=== PATIENT | male | born 1945 | race Caucasian/White ===

== ENCOUNTER 2022-06-26 11:17 | Emergency (ER) | payer MEDICARE ==
[~2022-06-26] VITALS: Ht 177.8 cm; Wt 94.3 kg
[2022-06-26 12:09] LABS: BASOPHILS % (AUTO) 0.7 % (0.0-5.0); EOSINOPHILS % (AUTO) 2.4 % (0.0-8.0); HEMATOCRIT 46.7 % (42-54); LYMPHOCYTES % (AUTO) 14.1 % (21.0-51.0); MEAN CORPUSCULAR HEMOGLOBIN 29.4 pg (27.0-33.0); MEAN CORPUSCULAR HGB CONC 34.5 g/dL (32.0-36.0); MEAN CORPUSCULAR VOLUME 85.4 fL (79-99); MONOCYTES % (AUTO) 12.6 % (3.0-13.0); NEUTROPHILS % (AUTO) 69.7 % (40.0-77.0); PLATELET COUNT (AUTO) 152 K/uL (130-400); RED BLOOD CELL COUNT(AUTO) 5.47 MIL/uL (4.50-6.20); RED CELL DISTRIBUTION WIDTH 13.8 % (11.0-15.5); WHITE BLOOD COUNT (AUTO) 8.3 K/uL (4.8-10.8)
[2022-06-26 12:39] LABS: ALBUMIN 4.1 g/dL (3.5-5.0); CREATININE 1.4 mg/dL (0.5-1.5); POTASSIUM 3.5 mmol/L (3.5-5.1)
[2022-06-26 13:56] VITALS: BP 128/90
[2022-06-26] MEDS ORDERED: IPRATROPIUM/ALBUTEROL SULFATE 3 ML SOLUTION IH STA (14:18)
[2022-06-26] MEDS ORDERED: IPRATROPIUM 0.5 MG/2.5 ML INH IH ONE (14:21)
[2022-06-26] MEDS ORDERED: ALBUTEROL 0.042% 1.25MG/3ML IH ONE (14:21)
[2022-06-26] MEDS ORDERED: SOLU-MEDROL 125MG VIAL IVP ONE (15:00)
[2022-06-26] MEDS ORDERED: FLUT16H NASAL (15:25)
[2022-06-26] MEDS ORDERED: BENZ-39 PO (15:25)
[2022-06-26] MEDS ORDERED: GUAIFENESIN-CODEINE 5 ML SYRUP PO STA (15:26)
== END 2022-06-26 15:41 | disposition home or self-care (01) ==
LOC: EDH 11:17
DX: J32.9 Chronic sinusitis, unspecified (principal); J06.9 Acute upper respiratory infection, unspecified; I10 Essential (primary) hypertension; Z88.1 Allergy status to other antibiotic agents; Z20.822 Contact with and (suspected) exposure to COVID-19
CPT/HCPCS: 99285; 96374; 71045; 87635; 84484; 80053; 83880; 85025; 87040 ×2; 87804 ×2; 83605; 36415; 93005; 94640; C9803; J2930